=== PATIENT | female | born 1960 | race Caucasian/White ===

== ENCOUNTER 2023-11-17 12:25 | Emergency (ER) | payer BC ==
[~2023-11-17] VITALS: Ht 154.9 cm; Wt 65.3 kg
[2023-11-17 12:27] VITALS: BP_SYST 152; PULSE 80; RESP 16; TEMP 97.6; O2SAT 100
[2023-11-17] MEDS ORDERED: TRAM50TA2 PO (13:40)
[2023-11-17] MEDS ORDERED: IBUP-1969 PO (13:40)
[2023-11-17] MEDS ORDERED: CLIN-142 PO (13:42)
[2023-11-17] MEDS ORDERED: ACETAMINOPHEN 500 MG TABLET ONE (14:09)
[2023-11-17 14:15] VITALS: BP_SYST 152; PULSE 80; RESP 16; TEMP 97.6; O2SAT 100
[2023-11-17] MEDS: ACETAMINOPHEN 500 MG TABLET PO ONE (14:41)
== END 2023-11-17 14:15 | disposition home or self-care (01) ==
LOC: SED 12:25
DX: S13.8XXA Sprain of joints and ligaments of other parts of neck, initial encounter (principal); M54.9 Dorsalgia, unspecified; E03.9 Hypothyroidism, unspecified; V89.2XXA Person injured in unspecified motor-vehicle accident, traffic, initial encounter; Y93.89 Activity, other specified; Y92.89 Other specified places as the place of occurrence of the external cause; Y99.8 Other external cause status
CPT/HCPCS: 72040; 99283